=== PATIENT | male | born 1995 | race African-American/Black ===

== ENCOUNTER 2016-08-02 08:21 | Emergency (ER) | payer MEDICAID ==
[~2016-08-02] VITALS: Ht 167.6 cm; Wt 68.1 kg
[2016-08-02] MEDS ORDERED: MORPHINE SULFATE 4 MG/ML SYRINGE IVP ONE (08:45)
[2016-08-02 09:01] LABS: BASOPHILS # (AUTO) 0.04 K/uL (0.00-0.20); BASOPHILS % (AUTO) 0.6 % (0.0-2.0); EOSINOPHILS # (AUTO) 0.09 K/uL (0.00-0.70); EOSINOPHILS % (AUTO) 1.24 % (1.0-6.0); HEMATOCRIT 44.2 % (41-53); HEMOGLOBIN 14.8 g/dL (13.5-17.5); LYMPHOCYTES # (AUTO) 1.3 K/uL (1.0-4.8); LYMPHOCYTES % (AUTO) 18.1 % (22.0-44.0); MEAN CORPUSCULAR HEMOGLOBIN 29.7 pg (26.0-34.0); MEAN CORPUSCULAR HGB CONC 33.4 G/dL (31.0-37.0); MEAN CORPUSCULAR VOLUME 89 fL (80-100); MONOCYTES # (AUTO) 0.4 K/uL (0.1-1.0); MONOCYTES % (AUTO) 5.2 % (2.0-9.0); NEUTROPHILS # (AUTO) 5.6 K/uL (1.8-7.7); NEUTROPHILS % (AUTO) 74.9 % (40.0-70.0); PLATELET COUNT (AUTO) 198 K/uL (150-450); RED BLOOD CELL COUNT(AUTO) 4.97 MIL/uL (4.50-5.90); RED CELL DISTRIBUTION WIDTH 14.1 % (11.5-14.5); WHITE BLOOD COUNT (AUTO) 7.4 K/uL (4.5-11.0)
[2016-08-02 09:16] LABS: ANION GAP 10 mmol/L (8-16); CALCIUM, TOTAL 9.3 mg/dL (8.8-10.5); CARBON DIOXIDE 26 mmol/L (22-29); CHLORIDE 104 mmol/L (98-107); CREATININE 1.13 mg/dL (0.60-1.30); GLOMERULAR FILTR. RATE CALC > 60 mL/min (>60); POTASSIUM 3.6 mmol/L (3.5-5.1); SODIUM SERUM 140 mmol/L (136-145); UREA NITROGEN, BLOOD 10 mg/dL (7-18)
[2016-08-02 09:19] LABS: ALANINE AMINOTRANSFERASE 17 U/L (12-78); ALBUMIN 4.2 g/dL (3.4-5.0); ASPARTATE AMINOTRANSFERASE 16 U/L (15-37); BILIRUBIN,TOTAL 0.7 mg/dL (0.1-1.0); TOTAL PROTEIN, SERUM 7.3 g/dL (6.4-8.2)
[2016-08-02] MEDS ORDERED: IOVERSOL 350 MG/ML 100 ML VIAL ONE (09:35)
[2016-08-02] MEDS ORDERED: SODIUM CHLORIDE 0.9% 100 ML ONE (09:35)
[2016-08-02 11:08] VITALS: BP 104/65
== END 2016-08-02 11:15 | disposition home or self-care (01) ==
LOC: EMS 08:23
DX: S39.91XA Unspecified injury of abdomen, initial encounter (principal); M54.16 Radiculopathy, lumbar region; V23.4XXA Motorcycle driver injured in collision with car, pick-up truck or van in traffic accident, initial encounter; Y93.89 Activity, other specified; Y92.89 Other specified places as the place of occurrence of the external cause; Y99.8 Other external cause status
CPT/HCPCS: 36415; 74177; 80053; 85025; 96374; 99285; J2270; J7050; Q9967

== ENCOUNTER 2016-08-07 13:01 | Emergency (ER) | payer SELFPAY ==
[~2016-08-07] VITALS: Ht 167.6 cm; Wt 68.0 kg
[2016-08-07 13:21] VITALS: BP 157/73
== END 2016-08-07 14:15 | disposition left against medical advice (07) ==
LOC: EMS 13:03
DX: Z02.89 Encounter for other administrative examinations (principal); Z53.21 Procedure and treatment not carried out due to patient leaving prior to being seen by health care provider

== ENCOUNTER 2016-08-08 02:46 | Emergency (ER) | payer MEDICAID ==
[~2016-08-08] VITALS: Ht 167.6 cm; Wt 68.2 kg
[2016-08-08 03:37] VITALS: BP 113/75
== END 2016-08-08 03:39 | disposition home or self-care (01) ==
LOC: EMS 02:47
DX: M54.9 Dorsalgia, unspecified (principal); Z02.89 Encounter for other administrative examinations
CPT/HCPCS: 99281